=== PATIENT | male | born 1955 | race Caucasian/White ===

== ENCOUNTER → 2016-05-13 | Outpatient (CLI) | payer BC ==
--- NOTE | 2016-05-13 15:22 | RAD ---
Indication right flank pain. Axial images through the abdomen and pelvis were obtained. No IV or gastrointestinal contrast was administered. The examination was tailored for the detection of renal and/or ureteral calculi. Imaging through the pelvis is somewhat degraded secondary to streak artifact associated with bilateral total hip prostheses.. No prior imaging of the abdomen or pelvis is available. There is a 2 to 3 mm lm a nodule in the right middle lobe, image 2 series 2. Follow-up imaging along the lines of the Fleischner criteria should be considered. There is a probable additional 2 mm nodule attached to the left hemidiaphragm, image 18. An acute finding in either lung base is not seen. A focal mass is not seen in the liver. There is probable fatty infiltration. The gallbladder appears grossly normal. Spleen appears unremarkable. The pancreas appears normal. There are no adrenal masses. The kidneys appear unremarkable. There are no renal calculi on either side. There is no hydronephrosis hydroureter or definite calcification seen along the course of either ureter. Again the evaluation of the distal ureters is compromised secondary to the bilateral total hip prostheses. An acute finding in the abdomen is not seen. No acute or definite significant finding is seen in the pelvis. Degenerative postoperative changes are noted in the lumbar spine. No inflammatory changes are seen in the IMPRESSION: Somewhat limited study in the pelvis secondary to bilateral total hip prostheses. No acute finding is seen in the abdomen or pelvis. Small pulmonary nodules at each lung base.. Follow-up imaging along the lines of the Fleischner criteria should be considered. Nodules detected incidentally at non-screening CT Nodule size (mm) less than or equal to 4 Low Risk patients- no follow-up needed High Risk patients- follow-up at 12 months and if no change, no further imaging needed. Nodule size > 4-6 mm Low risk patients- follow- up at 12 months and if no change, no further imaging needed High risk patients- initial follow-up CT at 6-12 months and then at 18-24 months if no change. Nodule Size > 6-8 mm Low risk patients- initial follow-up CT at 6-12 months and then at 18-24 months if no change. High risk patients- initial follow- up CT at 3-6 months and then at 9-12 months if no change, Nodule Size >8 mm Either low or high risk patients: Follow-up CT at around 3, 9 and 24 months Dynamic contrast [address], PET, and/or biopsy Note: newly detected indeterminate nodule in person 35 years of age or older. Low risk patients- minimal or absent history of smoking and/or other known risk factors. High risk patients- history of smoking or of other known risk factors. PQRS Compliance Statement: One or more of the following individualized dose reduction techniques were utilized for this examination: 1. Automated exposure control 2. Adjustment of the mA and/or kV according to patient size 3. Use of iterative reconstruction technique
== END | disposition home or self-care (01) ==
LOC: CT 14:35
PROVIDERS: ATTEND Family Medicine
DX: N23 Unspecified renal colic (principal)
CPT/HCPCS: 74176

== ENCOUNTER → 2016-05-15 | Outpatient (CLI) | payer BC ==
[~2016-05-15] MED LIST: IOHEXOL 300 MG/ML 75 ML VIAL. IV ONE
--- NOTE | 2016-05-15 13:50 | RAD ---
CT of the abdomen and pelvis with contrast, 05/15/2016: History: Hematuria Multidetector CT imaging was performed following an IV bolus injection of iodinated contrast material. Postcontrast scans were obtained in the nephrographic and excretory phases. The study is correlated with precontrast scans from 05/13/2016. There is patchy fatty change in the liver. No gallbladder abnormality is seen. The pancreas is unremarkable. The spleen is of normal size. A small accessory spleen is noted. No renal mass is identified. There is no evidence of hydronephrosis. 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 The ureters are otherwise unremarkable. The urinary bladder is partially obscured by artifacts arising from bilateral hip prostheses. No bladder abnormality is detected. The prostate gland is largely obscured but appears to be at the upper limits of normal in size. Aortoiliac calcific plaquing is present without evidence of aneurysm. No abdominal or pelvic adenopathy is seen. The bowel loops are not dilated. No free fluid is evident in the abdomen or pelvis. There are moderate scattered degenerative changes in the spine. IMPRESSION: 1. No urinary tract abnormality is detected. 2. Hepatic steatosis. 3. No acute abdominal or pelvic abnormality is detected. PQRS Compliance Statement: One or more of the following individualized dose reduction techniques were utilized for this examination: 1. Automated exposure control 2. Adjustment of the mA and/or kV according to patient size 3. Use of iterative reconstruction technique
== END | disposition home or self-care (01) ==
LOC: CT 12:25
PROVIDERS: ATTEND Specialist
DX: K76.0 Fatty (change of) liver, not elsewhere classified (principal)
CPT/HCPCS: 74177; Q9967

== ENCOUNTER → 2016-10-08 | Outpatient (CLI) | payer BC, OTHER ==
--- NOTE | 2016-10-08 17:27 | RAD ---
DATE: 10/08/2016 EXAM: DIGITAL DIAGNOSTIC BILATERAL, BREAST RIGHT HISTORY: Palpable abnormality in the right breast COMPARISON: None available This study was interpreted with the benefit of Computerized Aided Detection (CAD). The breast parenchyma is primarily fatty replaced. Breast parenchyma level density A. FINDINGS: Bilateral CC and MLO views of the breasts were performed. Right breast: There are no suspicious microcalcifications, masses or areas of architectural distortion. Left breast: There are no suspicious microcalcifications, masses or areas of architectural distortion. Targeted right breast ultrasound was performed at the 2:00 position, 10 cm from the nipple in the region of palpable abnormality. A circumscribed hyperechoic mass is identified with sonographic appearance compatible with lipoma measuring 2.5 x 0.5 cm. Findings are compatible with benign findings. IMPRESSION: Right breast: Benign findings. Findings are compatible with a lipoma. Left breast: Negative left mammogram. BI-RADS CATEGORY: 2 BENIGN FINDING(S) RECOMMENDED FOLLOW-UP: CLIN FOLLOW UP IMAGING CLINICALLY INDICATED PQRS compliance statement: Mammography is a sensitive method for finding small breast cancers, but it does not detect them all and is not a substitute for careful clinical examination. A negative mammogram does not negate a clinically suspicious finding and should not result in delay in biopsying a clinically suspicious abnormality. "Our facility is accredited by the [employer] Mammography Program."
== END | disposition home or self-care (01) ==
LOC: MAMMO 13:39
PROVIDERS: ATTEND Nurse Practitioner Acute Care
DX: N63 Unspecified lump in breast (principal); I10 Essential (primary) hypertension
CPT/HCPCS: 76641; G0204; 77066

== ENCOUNTER → 2020-04-05 | Outpatient (CLI) | payer BC ==
--- NOTE | 2020-04-05 10:35 | RAD ---
XR HAND_RIGHT 3 VIEWS DATE: 04/05/2020 10:19 AM INDICATION: RIGHT HAND PAIN COMPARISON: None. FINDINGS: Bones: There is no evidence of acute fracture or dislocation. Joints: Severe degenerative changes of the second DIP joint with ulnar angulation. Moderate degenerat analy changes of the first MCP and IP joints. Mild multifocal degenerative changes elsewhere throughout . Miscellaneous: None. IMPRESSION: Multifocal degenerative changes as detailed above. Electronically signed by: Edgardo Hoover MD (04/05/2020 10:33 AM) [id number]
== END ==
LOC: RAD 10:06
PROVIDERS: ATTEND Orthopaedic Surgery
DX: M19.041 Primary osteoarthritis, right hand (principal)
CPT/HCPCS: 73130

== ENCOUNTER → 2020-07-04 | Outpatient (CLI) | payer BC ==
--- NOTE | 2020-07-04 17:06 | RAD ---
EXAM: Chest, 2 views. HISTORY: Cough and congestion. COMPARISON: None. FINDINGS: 2 views of the chest are obtained. There is no infiltrate, pleural effusion or pneumothorax . The heart is normal in size. There are suspected infrahilar atelectasis or scarring. IMPRESSION: No acute pulmonary finding. Electronically signed by: Divina Garnett MD (07/04/2020 5:03 PM) [facility]
== END ==
LOC: DXRAD 16:51
PROVIDERS: ATTEND Family Medicine
DX: R05 Cough (principal); R09.81 Nasal congestion
CPT/HCPCS: 71046

== ENCOUNTER → 2020-07-24 | Outpatient (CLI) | payer BC ==
[~2020-07-24] MED LIST changes: +IOHEXOL 350 MG/ML 100 ML VIAL. IV ONE
--- NOTE | 2020-07-24 15:49 | RAD ---
CT of the chest with contrast 07/24/2020 Indication: [Shortness of breath x1 year] Comparison study: [Chest radiograph July 04, 2020] Technique: Multidetector CT imaging of the chest was performed following the administration of intrav enous contrast. Findings: Heart size is normal. No significant pericardial effusion is seen. No pathologic mediastinal adenopa thy is identified. No focal infiltrate is seen. No pneumothorax or pleural effusion is seen. There i s a 6 mm nodule right middle lobe. Axial image 35,Sagittal image 63. No acute osseous abnormality is identified. Limited visualization of the upper abdomen demonstrates no acute abnormality. Impression: 1. 6 mm noncalcified nodule, right middle lobe. Recommend 6-12 month follow-up CT scan comment, per F leischner guidelines listed below. 2. No other acute cardiopulmonary process is identified. Fleischner Society pulmonary nodule recommendations 2017, revision 4 SOLID NODULES Solitary solid nodule 6-8 mm (100-250 mm3) low-risk patients: CT at 6-12 months, then consider CT at 18-24 months high-risk patients: CT at 6-12 months, then CT at 18-[address] DOSING PQRS STATEMENT: One or more of the following individualized dose reduction techniques were utilized for this examinat ion: 1. Automated exposure control 2. Adjustment of the mA and/or kV according to patient size 3. Use of iterative reconstruction technique Electronically signed by: Alex Buenrostro MD (07/24/2020 3:47 PM) [id number]
--- NOTE | 2020-07-25 10:29 | CARD ---
MR#: [id number] Date of Study: 07/24/2020 Ordering Physician: JAVIER DE LEÓN, Referring Physician: JAVIER DE LEÓN, Tech: Luiza Thompson, [facility] APPROVED REPORT EXAM: Two-dimensional and M-mode echocardiogram with Doppler and color Doppler. Other Information Quality : GoodHR: 83bpm INDICATION Dyspnea RISK FACTORS Hypertension Hyperlipidemia 2D DIMENSIONS RVDd3.5 (2.9-3.5cm)Left Atrium(2D)4.2 (1.6-4.0cm) IVSd1.1 (0.7-1.1cm)Aortic Root(2D)3.2 (2.0-3.7cm) LVDd5.2 (3.9-5.9cm)LVOT Diameter2.1 (1.8-2.4cm) PWd1.0 (0.7-1.1cm)LVDs3.5 (2.5-4.0cm) FS (%) 32.3 %SV77.1 ml LVEF(%)60.1 (>50%) Aortic Valve AoV Peak Aj.184.0cm/sAoV VTI36.3cm AO Peak GR.13.5mmHgLVOT Peak Aj.106.3cm/s LVOT VTI 20.32cmAO Mean GR.7mmHg REGGIE (VMAX)2.82eo7KUZ (VTI)2.03cm2 Mitral Valve MV E Vjhjevgl67.5cm/sMV DECEL [id number] MV A Wswogvxq53.9cm/sE/A Ratio1.4 Pulmonary Valve PV Peak Uwjuqedd07.1cm/sPV Peak Grad.3mmHg Tricuspid Valve TR P. Mqdwmcuh785xv/sRAP [id number] TR Peak Gr.70faMdYTNE65daNa Pulmonary Vein S1 Zozzjspa66.7cm/sD2 Ivjfcivi99.8cm/s LEFT VENTRICLE The left ventricle is normal size. There is borderline to mild concentric left ventricular hypertroph y. The left ventricular systolic function is normal and the ejection fraction is within normal range. The Ejection Fraction is 50-55%. There is normal LV segmental wall motion. Transmitral Doppler flow pattern is Grade II-pseudonormal filling dynamics. RIGHT VENTRICLE The right ventricle is normal size. There is normal right ventricular wall thickness. The right ventr icular systolic function is normal. ATRIA The left atrium size is normal. The right atrium size is normal. The interatrial septum is intact wit h no evidence for an atrial septal defect or patent foramen ovale as noted on 2-D or Doppler imaging. AORTIC VALVE The aortic valve is normal in structure and function. Doppler and Color Flow revealed trace aortic re gurgitation. There is no significant aortic valvular stenosis. Calculated aortic valve area is 2.1 cm 2 with maximum pressure gradient of 14 mmHg and mean pressure gradient of 7 mmHg. MITRAL VALVE The mitral valve is normal in structure and function. There is no evidence of mitral valve prolapse. There is no mitral valve stenosis. Doppler and Color Flow revealed no mitral valve regurgitation note d. TRICUSPID VALVE The tricuspid valve is normal in structure and function. Doppler and Color Flow revealed trace tricus pid regurgitation with an estimated PAP of 27 mmHg. There is no tricuspid valve stenosis. PULMONIC VALVE The pulmonic valve is not well visualized. Doppler and Color Flow revealed trace pulmonic valvular re gurgitation. GREAT VESSELS The aortic root is normal in size. The IVC is normal in size and collapses >50% with inspiration. PERICARDIAL EFFUSION There is no evidence of significant pericardial effusion. Critical Notification Critical Value: No <Conclusion> The left ventricle is normal size. The left ventricular systolic function is normal and the ejection fraction is within normal range. The Ejection Fraction is 50-55%. There is borderline to mild concentric left ventricular hypertrophy. Doppler and Color Flow revealed trace aortic regurgitation. There is no significant aortic valvular stenosis. Doppler and Color Flow revealed no mitral valve regurgitation noted. Doppler and Color Flow revealed trace tricuspid regurgitation with an estimated PAP of 27 mmHg. Signed by : Aurelio Rasmussen MD Electronically Approved : 07/25/2020 10:29:07
== END ==
LOC: ECHO 13:48
PROVIDERS: ATTEND Family Medicine
DX: R91.1 Solitary pulmonary nodule (principal); I51.7 Cardiomegaly
CPT/HCPCS: 71260; 93306; Q9967